=== PATIENT | male | born 1980 | race Caucasian/White ===

== ENCOUNTER 2021-12-25 01:35 | Emergency (ER) | payer MEDICARE, MEDICAID ==
[~2021-12-25] VITALS: Ht 175.3 cm; Wt 127.3 kg
[2021-12-25] MEDS ORDERED: OxyCODONE HCL/ACETAMINOPHEN 5-325 MG TABLET PO ONE (03:45)
[2021-12-25 08:25] VITALS: BP 122/71
== END 2021-12-25 08:35 | disposition home or self-care (01) ==
LOC: EMS 01:37
DX: M25.571 Pain in right ankle and joints of right foot (principal); I11.0 Hypertensive heart disease with heart failure; I50.9 Heart failure, unspecified; E11.9 Type 2 diabetes mellitus without complications
CPT/HCPCS: 82962; 99283

== ENCOUNTER 2021-12-28 20:33 | Inpatient (IN) | payer MEDICARE, MEDICAID ==
[~2021-12-28] VITALS: Ht 175.3 cm; Wt 170.0 kg
[2021-12-28] MEDS ORDERED: SENN8.6T20 PO (21:30)
[2021-12-28] MEDS ORDERED: PANT40TA54 PO (21:30)
[2021-12-28] MEDS ORDERED: EMPA25TA PO (21:30)
[2021-12-28] MEDS ORDERED: LEVE250T4 PO (21:30)
[2021-12-28] MEDS ORDERED: APIX5TAB PO (21:30)
[2021-12-28] MEDS ORDERED: METO-391 PO (21:30)
[2021-12-28] MEDS ORDERED: SPIR50TA27 PO (21:30)
[2021-12-28] MEDS ORDERED: SENN-277 PO (21:30)
[2021-12-28] MEDS ORDERED: VALS80TA32 PO (21:30)
[2021-12-28] MEDS ORDERED: INSU100I68 SQ (21:30)
[2021-12-28] MEDS ORDERED: TAMS-13 PO (21:30)
[2021-12-28] MEDS ORDERED: BUME2TAB5 PO (21:30)
[2021-12-28] MEDS ORDERED: OXYC1TAB6 PO (21:30)
[2021-12-28] MEDS ORDERED: ISOS60TA77 PO (21:30)
[2021-12-28] MEDS ORDERED: TRAZ-257 PO (21:30)
[2021-12-28] MEDS ORDERED: ASPI-1198 PO (21:30)
[2021-12-28] MEDS ORDERED: INSU100I47 SQ (21:33)
[2021-12-28] MEDS ORDERED: GABA600T10 PO (21:33)
[2021-12-28] MEDS ORDERED: HYDR100T28 PO (21:33)
[2021-12-28 21:49] LABS: BASOPHILS % (AUTO) 1.1 % (0.0-2.0); EOSINOPHILS % (AUTO) 5.1 % (1.0-6.0); LYMPHOCYTES # (AUTO) 0.8 K/uL (1.0-4.8); LYMPHOCYTES % (AUTO) 7.4 % (22.0-44.0); MEAN CORPUSCULAR HEMOGLOBIN 26.5 pg (26.0-34.0); MEAN CORPUSCULAR HGB CONC 32.2 G/dL (31.0-37.0); MEAN CORPUSCULAR VOLUME 82 fL (80-100); MONOCYTES # (AUTO) 1.1 K/uL (0.1-1.0); MONOCYTES % (AUTO) 10.2 % (2.0-9.0); NEUTROPHILS # (AUTO) 7.9 K/uL (1.8-7.7); NEUTROPHILS % (AUTO) 76.2 % (40.0-70.0); PLATELET COUNT (AUTO) 372 K/uL (150-450); RED CELL DISTRIBUTION WIDTH 20.3 % (11.5-14.5)
[2021-12-28 21:59] LABS: CALCIUM, TOTAL 8.6 mg/dL (8.8-10.5); CREATININE 2.38 mg/dL (0.60-1.30); POTASSIUM 5.5 mmol/L (3.5-5.1)
[2021-12-28 22:03] LABS: ALBUMIN 2.8 g/dL (3.4-5.0); BILIRUBIN,TOTAL 0.6 mg/dL (0.1-1.0); TOTAL PROTEIN, SERUM 6.9 g/dL (6.4-8.2)
[2021-12-28] MEDS ORDERED: SODIUM CHLORIDE 0.9% 500 ML IV ONE (23:00)
[2021-12-29] VITALS (7 sets, daily range): BP systolic 111–138; BP diastolic 57–87
[2021-12-29] MEDS ORDERED: ACETAMINOPHEN 325 MG TABLET PO PRN
[2021-12-29] MEDS ORDERED: DEXTROSE 50%-WATER 25 GM/50 ML SYRINGE IVP PRN
[2021-12-29] MEDS ORDERED: BISACODYL 10 MG RECTAL RECTAL SUPPOSITORY PR PRN
[2021-12-29] MEDS ORDERED: MAGNESIUM HYDROXIDE SUSPENSION 30 ML UDCUP PO PRN
[2021-12-29] MEDS ORDERED: ZOLPIDEM TARTRATE 5 MG TABLET PO PRN
[2021-12-29] MEDS ORDERED: ONDANSETRON HCL 4 MG/2 ML VIAL IVP PRN
[2021-12-29] MEDS ORDERED: PNEUMOCOCCAL VACCINE POLYVALENT 0.5 ML VIAL [PPSV23] IM. ONE (02:30)
[2021-12-29 07:19] LABS: BASOPHILS % (AUTO) 0.6 % (0.0-2.0); EOSINOPHILS % (AUTO) 6.5 % (1.0-6.0); HEMATOCRIT 28.5 % (41-53); HEMOGLOBIN 9.1 g/dL (13.5-17.5); LYMPHOCYTES # (AUTO) 1.1 K/uL (1.0-4.8); MEAN CORPUSCULAR HEMOGLOBIN 26.6 pg (26.0-34.0); MEAN CORPUSCULAR HGB CONC 31.9 G/dL (31.0-37.0); MEAN CORPUSCULAR VOLUME 83 fL (80-100); MONOCYTES # (AUTO) 1.3 K/uL (0.1-1.0); MONOCYTES % (AUTO) 12.7 % (2.0-9.0); NEUTROPHILS # (AUTO) 6.9 K/uL (1.8-7.7); NEUTROPHILS % (AUTO) 69.2 % (40.0-70.0); PLATELET COUNT (AUTO) 381 K/uL (150-450); RED BLOOD CELL COUNT(AUTO) 3.43 MIL/uL (4.50-5.90); RED CELL DISTRIBUTION WIDTH 20.3 % (11.5-14.5)
[2021-12-29 07:24] LABS: CALCIUM, TOTAL 8.6 mg/dL (8.8-10.5); CREATININE 2.38 mg/dL (0.60-1.30); POTASSIUM 5.7 mmol/L (3.5-5.1)
[2021-12-29] MEDS: PANTOPRAZOLE SODIUM 40 MG DR TABLET PO SCH (08:42)
[2021-12-29] MEDS: ISOSORBIDE MONONITRATE 60 MG ER TABLET PO SCH (08:42)
[2021-12-29] MEDS: DOCUSATE SODIUM 100 MG CAPSULE PO SCH ×3 (08:42→20:36)
[2021-12-29] MEDS: METOPROLOL SUCCINATE 50 MG ER TABLET PO SCH ×2 (08:42→20:28)
[2021-12-29] MEDS: TAMSULOSIN HCL 0.4 MG CAPSULE PO SCH (08:42)
[2021-12-29] MEDS: ASPIRIN 81 MG CHEWABLE TABLET PO SCH (08:42)
[2021-12-29] MEDS: APIXABAN 5 MG TABLET PO SCH ×2 (08:42→20:28)
[2021-12-29] MEDS: LevETIRAcetam 250 MG TABLET PO SCH ×2 (08:42→20:29)
[2021-12-29] MEDS: HYDROCODONE/ACETAMINOPHEN 5-325 MG TABLET PO PRN ×2 (08:47→17:34)
[2021-12-29 10:41] LABS: GLUCOMETER DEV NAME(LOC) 5N.1C; GLUCOSE,POINT OF CARE 125 MG/DL (70-110)
[2021-12-29] MEDS ORDERED: PERFLUTREN PROTEIN-A MICROSPHERES 0.22 MG/ML 3 ML VIAL IVP ONE (11:30)
[2021-12-29] MEDS: SODIUM ZIRCONIUM CYCLOSILICATE 5 GM POWDER PACKET PO SCH (11:32)
[2021-12-29] MEDS: SODIUM CHLORIDE 0.9% 1,000 ML IV SCH ×2 (11:32→23:34)
[2021-12-29 20:21] LABS: GLUCOMETER DEV NAME(LOC) 5N.1C; GLUCOSE,POINT OF CARE 122 MG/DL (70-110)
[2021-12-29 20:21] LABS: GLUCOMETER DEV NAME(LOC) 5N.1C; GLUCOSE,POINT OF CARE 139 MG/DL (70-110)
[2021-12-30 02:01] LABS: GLUCOMETER DEV NAME(LOC) 5S.2B; GLUCOSE,POINT OF CARE 121 MG/DL (70-110)
[2021-12-30 04:26] VITALS: BP 129/78
[2021-12-30] MEDS: HYDROCODONE/ACETAMINOPHEN 5-325 MG TABLET PO PRN ×3 (04:56→18:24)
[2021-12-30 06:26] LABS: BASOPHILS % (AUTO) 0.9 % (0.0-2.0); EOSINOPHILS % (AUTO) 8.9 % (1.0-6.0); HEMATOCRIT 29.5 % (41-53); HEMOGLOBIN 9.5 g/dL (13.5-17.5); LYMPHOCYTES % (AUTO) 12.7 % (22.0-44.0); MEAN CORPUSCULAR HEMOGLOBIN 26.5 pg (26.0-34.0); MEAN CORPUSCULAR HGB CONC 32.1 G/dL (31.0-37.0); MEAN CORPUSCULAR VOLUME 83 fL (80-100); MONOCYTES # (AUTO) 0.9 K/uL (0.1-1.0); MONOCYTES % (AUTO) 11.9 % (2.0-9.0); NEUTROPHILS # (AUTO) 5.2 K/uL (1.8-7.7); NEUTROPHILS % (AUTO) 65.6 % (40.0-70.0); PLATELET COUNT (AUTO) 413 K/uL (150-450); RED BLOOD CELL COUNT(AUTO) 3.57 MIL/uL (4.50-5.90); RED CELL DISTRIBUTION WIDTH 20.6 % (11.5-14.5)
[2021-12-30 07:04] LABS: % IRON SATURATION 11.1 % (30-44)
[2021-12-30 07:11] LABS: CALCIUM, TOTAL 8.7 mg/dL (8.8-10.5); CREATININE 2.28 mg/dL (0.60-1.30); MAGNESIUM 2.6 mg/dL (1.80-2.40); PHOSPHORUS 5.3 mg/dL (2.5-4.9); POTASSIUM 5.7 mmol/L (3.5-5.1)
[2021-12-30 07:29] VITALS: BP 137/88
[2021-12-30] MEDS: SODIUM ZIRCONIUM CYCLOSILICATE 5 GM POWDER PACKET PO SCH (08:54)
[2021-12-30] MEDS: METOPROLOL SUCCINATE 50 MG ER TABLET PO SCH ×2 (08:55→20:35)
[2021-12-30] MEDS: ISOSORBIDE MONONITRATE 60 MG ER TABLET PO SCH (08:57)
[2021-12-30] MEDS: LevETIRAcetam 250 MG TABLET PO SCH ×2 (08:58→20:34)
[2021-12-30] MEDS: PANTOPRAZOLE SODIUM 40 MG DR TABLET PO SCH (08:59)
[2021-12-30] MEDS: ASPIRIN 81 MG CHEWABLE TABLET PO SCH (08:59)
[2021-12-30] MEDS: APIXABAN 5 MG TABLET PO SCH ×2 (08:59→20:34)
[2021-12-30] MEDS: TAMSULOSIN HCL 0.4 MG CAPSULE PO SCH (09:00)
[2021-12-30] MEDS: DOCUSATE SODIUM 100 MG CAPSULE PO SCH ×2 (09:00→20:34)
[2021-12-30] MEDS ORDERED: PERFLUTREN PROTEIN-A MICROSPHERES 0.22 MG/ML 3 ML VIAL IVP ONE (09:45)
[2021-12-30] MEDS: BUMETANIDE 1 MG TABLET PO SCH ×2 (11:14→20:36)
[2021-12-30 11:36] VITALS: BP 122/76
[2021-12-30 12:56] LABS: GLUCOMETER DEV NAME(LOC) 5N.1C; GLUCOSE,POINT OF CARE 103 MG/DL (70-110)
[2021-12-30 12:56] LABS: GLUCOMETER DEV NAME(LOC) 5S.2B; GLUCOSE,POINT OF CARE 96 MG/DL (70-110)
[2021-12-30 15:26] VITALS: BP 134/77
[2021-12-30] MEDS: INSULIN LISPRO 100 UNITS/ML SQ PRN ×2 (18:32→20:33)
[2021-12-30 18:51] LABS: GLUCOMETER DEV NAME(LOC) 5N.1C; GLUCOSE,POINT OF CARE 153 MG/DL (70-110)
[2021-12-30 22:01] VITALS: BP 139/76
[2021-12-31 00:28] VITALS: BP 133/85
[2021-12-31 04:23] VITALS: BP 135/72
[2021-12-31 05:51] LABS: GLUCOMETER DEV NAME(LOC) 5N.3; GLUCOSE,POINT OF CARE 169 MG/DL (70-110)
[2021-12-31 07:26] VITALS: BP 148/89
[2021-12-31 07:28] LABS: BASOPHILS % (AUTO) 0.7 % (0.0-2.0); EOSINOPHILS % (AUTO) 8.9 % (1.0-6.0); HEMATOCRIT 29.5 % (41-53); HEMOGLOBIN 9.6 g/dL (13.5-17.5); LYMPHOCYTES # (AUTO) 0.9 K/uL (1.0-4.8); LYMPHOCYTES % (AUTO) 10.3 % (22.0-44.0); MEAN CORPUSCULAR HEMOGLOBIN 26.6 pg (26.0-34.0); MEAN CORPUSCULAR HGB CONC 32.5 G/dL (31.0-37.0); MEAN CORPUSCULAR VOLUME 82 fL (80-100); MONOCYTES % (AUTO) 11.5 % (2.0-9.0); NEUTROPHILS % (AUTO) 68.6 % (40.0-70.0); PLATELET COUNT (AUTO) 427 K/uL (150-450); RED CELL DISTRIBUTION WIDTH 19.8 % (11.5-14.5)
[2021-12-31 07:36] LABS: CALCIUM, TOTAL 8.8 mg/dL (8.8-10.5); CREATININE 1.98 mg/dL (0.60-1.30)
[2021-12-31 08:20] LABS: GLUCOMETER DEV NAME(LOC) 5N.1C; GLUCOSE,POINT OF CARE 127 MG/DL (70-110)
[2021-12-31] MEDS ORDERED: SODIUM POLYSTYRENE SULFONATE 15 GM/60 ML SUSPENSION BOTTLE PO ONE (09:00)
[2021-12-31] MEDS: METOPROLOL SUCCINATE 50 MG ER TABLET PO SCH ×2 (09:00→09:07)
[2021-12-31] MEDS ORDERED: SODIUM ZIRCONIUM CYCLOSILICATE 5 GM POWDER PACKET PO SCH (09:00)
[2021-12-31] MEDS: APIXABAN 5 MG TABLET PO SCH ×2 (09:07→20:59)
[2021-12-31] MEDS: PANTOPRAZOLE SODIUM 40 MG DR TABLET PO SCH (09:07)
[2021-12-31] MEDS: BUMETANIDE 1 MG TABLET PO SCH (09:07)
[2021-12-31] MEDS: ASPIRIN 81 MG CHEWABLE TABLET PO SCH (09:08)
[2021-12-31] MEDS: LevETIRAcetam 250 MG TABLET PO SCH ×2 (09:08→20:59)
[2021-12-31] MEDS: ISOSORBIDE MONONITRATE 60 MG ER TABLET PO SCH (09:08)
[2021-12-31] MEDS: TAMSULOSIN HCL 0.4 MG CAPSULE PO SCH (09:08)
[2021-12-31] MEDS: DOCUSATE SODIUM 100 MG CAPSULE PO SCH ×3 (09:09→21:00)
[2021-12-31] MEDS: HYDROCODONE/ACETAMINOPHEN 5-325 MG TABLET PO PRN ×3 (11:32→20:59)
[2021-12-31] MEDS: IRON SUCROSE COMPLEX 200 MG in SODIUM CHLORIDE 0.9% 100 ML IV SCH (13:59)
[2021-12-31 15:35] VITALS: BP 169/99
[2021-12-31 20:00] VITALS: BP 165/82
[2021-12-31 20:06] LABS: GLUCOMETER DEV NAME(LOC) 5N.1C; GLUCOSE,POINT OF CARE 136 MG/DL (70-110)
[2021-12-31] MEDS: BUMETANIDE 0.25 MG/ML 4 ML VIAL IVP SCH (20:18)
[2021-12-31 20:21] LABS: GLUCOMETER DEV NAME(LOC) 5N.3; GLUCOSE,POINT OF CARE 126 MG/DL (70-110)
[2021-12-31] MEDS: METOPROLOL SUCCINATE 25 MG ER TABLET PO SCH (21:00)
[2021-12-31] MEDS: SODIUM ZIRCONIUM CYCLOSILICATE 5 GM POWDER PACKET PO SCH (21:01)
[2022-01-01 01:01] LABS: GLUCOMETER DEV NAME(LOC) 5N.1C; GLUCOSE,POINT OF CARE 115 MG/DL (70-110)
[2022-01-01] MEDS: MORPHINE SULFATE 2 MG/ML SYRINGE IVP PRN ×4 (02:55→18:58)
[2022-01-01 03:05] VITALS: BP 126/73
[2022-01-01 06:47] LABS: GLUCOMETER DEV NAME(LOC) 5N.3; GLUCOSE,POINT OF CARE 95 MG/DL (70-110)
[2022-01-01 06:57] LABS: BASOPHILS % (AUTO) 0.8 % (0.0-2.0); EOSINOPHILS % (AUTO) 8.3 % (1.0-6.0); HEMATOCRIT 29.1 % (41-53); HEMOGLOBIN 9.6 g/dL (13.5-17.5); LYMPHOCYTES # (AUTO) 0.8 K/uL (1.0-4.8); LYMPHOCYTES % (AUTO) 10.2 % (22.0-44.0); MEAN CORPUSCULAR HEMOGLOBIN 26.8 pg (26.0-34.0); MEAN CORPUSCULAR HGB CONC 32.9 G/dL (31.0-37.0); MEAN CORPUSCULAR VOLUME 82 fL (80-100); MONOCYTES # (AUTO) 0.9 K/uL (0.1-1.0); MONOCYTES % (AUTO) 12.4 % (2.0-9.0); NEUTROPHILS # (AUTO) 5.2 K/uL (1.8-7.7); NEUTROPHILS % (AUTO) 68.3 % (40.0-70.0); PLATELET COUNT (AUTO) 389 K/uL (150-450); RED BLOOD CELL COUNT(AUTO) 3.57 MIL/uL (4.50-5.90); RED CELL DISTRIBUTION WIDTH 20.1 % (11.5-14.5)
[2022-01-01 07:10] VITALS: BP 141/94
[2022-01-01 07:13] LABS: CREATININE 1.68 mg/dL (0.60-1.30); POTASSIUM 5.6 mmol/L (3.5-5.1)
[2022-01-01 07:14] LABS: CALCIUM, TOTAL 8.4 mg/dL (8.8-10.5)
[2022-01-01] MEDS: BUMETANIDE 0.25 MG/ML 4 ML VIAL IVP SCH ×2 (08:19→20:30)
[2022-01-01] MEDS: LevETIRAcetam 250 MG TABLET PO SCH ×2 (08:19→20:31)
[2022-01-01] MEDS: PANTOPRAZOLE SODIUM 40 MG DR TABLET PO SCH (08:20)
[2022-01-01] MEDS: ISOSORBIDE MONONITRATE 60 MG ER TABLET PO SCH (08:20)
[2022-01-01] MEDS: APIXABAN 5 MG TABLET PO SCH ×2 (08:20→20:31)
[2022-01-01] MEDS: TAMSULOSIN HCL 0.4 MG CAPSULE PO SCH (08:20)
[2022-01-01] MEDS: ASPIRIN 81 MG CHEWABLE TABLET PO SCH (08:21)
[2022-01-01] MEDS: SODIUM ZIRCONIUM CYCLOSILICATE 5 GM POWDER PACKET PO SCH ×2 (08:21→20:36)
[2022-01-01] MEDS: DOCUSATE SODIUM 100 MG CAPSULE PO SCH ×2 (08:21→20:52)
[2022-01-01] MEDS: METOPROLOL SUCCINATE 25 MG ER TABLET PO SCH ×2 (08:22→20:31)
[2022-01-01 11:51] LABS: GLUCOMETER DEV NAME(LOC) 5N.1C; GLUCOSE,POINT OF CARE 117 MG/DL (70-110)
[2022-01-01] MEDS: IRON SUCROSE COMPLEX 200 MG in SODIUM CHLORIDE 0.9% 100 ML IV SCH (13:00)
[2022-01-01 15:49] VITALS: BP 160/103
[2022-01-01 19:51] LABS: GLUCOMETER DEV NAME(LOC) 5S.1B; GLUCOSE,POINT OF CARE 114 MG/DL (70-110)
[2022-01-01 19:57] VITALS: BP 170/104
[2022-01-01 23:01] LABS: GLUCOMETER DEV NAME(LOC) 5S.1B; GLUCOSE,POINT OF CARE 128 MG/DL (70-110)
[2022-01-02] MEDS: MORPHINE SULFATE 2 MG/ML SYRINGE IVP PRN (00:33)
[2022-01-02 03:53] VITALS: BP 154/107
[2022-01-02 06:01] LABS: GLUCOMETER DEV NAME(LOC) 5S.1B; GLUCOSE,POINT OF CARE 111 MG/DL (70-110)
[2022-01-02 06:49] LABS: MAGNESIUM 2.3 mg/dL (1.80-2.40)
[2022-01-02 07:43] VITALS: BP 136/86
[2022-01-02 07:57] LABS: CALCIUM, TOTAL 8.7 mg/dL (8.8-10.5); CREATININE 1.55 mg/dL (0.60-1.30); POTASSIUM 5.2 mmol/L (3.5-5.1)
[2022-01-02] MEDS: BUMETANIDE 0.25 MG/ML 4 ML VIAL IVP SCH (08:08)
[2022-01-02] MEDS: LevETIRAcetam 250 MG TABLET PO SCH (08:09)
[2022-01-02] MEDS: TAMSULOSIN HCL 0.4 MG CAPSULE PO SCH (08:10)
[2022-01-02] MEDS: DOCUSATE SODIUM 100 MG CAPSULE PO SCH (08:10)
[2022-01-02] MEDS: ASPIRIN 81 MG CHEWABLE TABLET PO SCH (08:10)
[2022-01-02] MEDS: PANTOPRAZOLE SODIUM 40 MG DR TABLET PO SCH (08:10)
[2022-01-02] MEDS: ISOSORBIDE MONONITRATE 60 MG ER TABLET PO SCH (08:10)
[2022-01-02] MEDS: APIXABAN 5 MG TABLET PO SCH (08:11)
[2022-01-02] MEDS: SODIUM ZIRCONIUM CYCLOSILICATE 5 GM POWDER PACKET PO SCH (08:11)
[2022-01-02] MEDS: METOPROLOL SUCCINATE 25 MG ER TABLET PO SCH (08:11)
[2022-01-02 11:20] VITALS: BP 132/76
[2022-01-02] MEDS: IRON SUCROSE COMPLEX 200 MG in SODIUM CHLORIDE 0.9% 100 ML IV SCH (13:00)
[2022-01-02] MEDS ORDERED: BUME1TAB34 PO (15:23)
[2022-01-02] MEDS ORDERED: METO-558 PO (15:25)
[2022-01-02] MEDS ORDERED: SODI10PO2 PO (15:26)
[2022-01-02] MEDS ORDERED: TAMS-13 PO (15:27)
[2022-01-02] MEDS ORDERED: ACET-2247 PO (15:28)
[2022-01-02 15:37] VITALS: BP 143/88
[2022-01-02] MEDS ORDERED: BUMETANIDE 1 MG TABLET PO SCH (21:00)
[2022-01-02 22:21] LABS: GLUCOMETER DEV NAME(LOC) 5S.1B; GLUCOSE,POINT OF CARE 137 MG/DL (70-110)
[2022-01-02 22:21] LABS: GLUCOMETER DEV NAME(LOC) 5S.1B; GLUCOSE,POINT OF CARE 115 MG/DL (70-110)
== END 2022-01-02 18:00 | DRG 682 ==
LOC: EMS 20:37 → 5S 12-29 00:15
PROVIDERS: ADMIT Internal Medicine; ATTEND Internal Medicine
PROC: 5A09357 Assistance with Respiratory Ventilation, Less than 24 Consecutive Hours, Continuous Positive Airway Pressure (ICD-10-PCS; principal; 2021-12-29)
PROC: 5A09357 Assistance with Respiratory Ventilation, Less than 24 Consecutive Hours, Continuous Positive Airway Pressure (ICD-10-PCS; 2021-12-30)
PROC: 5A09357 Assistance with Respiratory Ventilation, Less than 24 Consecutive Hours, Continuous Positive Airway Pressure (ICD-10-PCS; 2021-12-31)
PROC: 5A09357 Assistance with Respiratory Ventilation, Less than 24 Consecutive Hours, Continuous Positive Airway Pressure (ICD-10-PCS; 2022-01-01)
PROC: 5A09357 Assistance with Respiratory Ventilation, Less than 24 Consecutive Hours, Continuous Positive Airway Pressure (ICD-10-PCS; 2022-01-02)
DX: N17.9 Acute kidney failure, unspecified (principal); J96.21 Acute and chronic respiratory failure with hypoxia; I50.31 Acute diastolic (congestive) heart failure; I13.0 Hypertensive heart and chronic kidney disease with heart failure and stage 1 through stage 4 chronic kidney disease, or unspecified chronic kidney disease; E87.1 Hypo-osmolality and hyponatremia; I48.92 Unspecified atrial flutter; Z68.43 Body mass index [BMI] 50.0-59.9, adult; J96.11 Chronic respiratory failure with hypoxia; I25.5 Ischemic cardiomyopathy; E11.22 Type 2 diabetes mellitus with diabetic chronic kidney disease; E66.01 Morbid (severe) obesity due to excess calories; E78.5 Hyperlipidemia, unspecified; E87.5 Hyperkalemia; I48.91 Unspecified atrial fibrillation; N40.0 Benign prostatic hyperplasia without lower urinary tract symptoms; D64.9 Anemia, unspecified; I25.10 Atherosclerotic heart disease of native coronary artery without angina pectoris; J44.9 Chronic obstructive pulmonary disease, unspecified; E86.0 Dehydration; G40.909 Epilepsy, unspecified, not intractable, without status epilepticus; N18.9 Chronic kidney disease, unspecified; Z95.1 Presence of aortocoronary bypass graft; Z86.73 Personal history of transient ischemic attack (TIA), and cerebral infarction without residual deficits; Z82.49 Family history of ischemic heart disease and other diseases of the circulatory system; Z79.01 Long term (current) use of anticoagulants; Z79.82 Long term (current) use of aspirin; Z79.899 Other long term (current) drug therapy; Z87.891 Personal history of nicotine dependence
CPT/HCPCS: 71045; 76770; 80048; 80053; 82728; 82962; 83540; 83550; 83690; 83735; 83880; 84100; 84132; 84484; 85025; 87081; 93005; 93306; 94660; 99285; J1756; J2270; J3490; J7030; J7040; J7050; Q9967; 36415-L1; 36415-TC